=== PATIENT | male | born 1980 | race American Indian/Alaskan Native ===

== ENCOUNTER 2019-02-06 19:11 | Emergency (ER) | payer SELFPAY ==
--- NOTE | 2019-02-06 20:27 | XRay Report ---
CHEST 2 VIEWS INDICATION / CLINICAL INFORMATION: cough. COMPARISON: None available. FINDINGS: SUPPORT DEVICES: None. HEART / MEDIASTINUM: No significant abnormality. LUNGS / PLEURA: No significant pulmonary or pleural abnormality. No pneumothorax. ADDITIONAL FINDINGS: No significant additional findings. IMPRESSION: 1. No acute findings. Signer Name: João Carver MD Signed: 02/06/2019 8:22 PM Workstation Name: [id number]
--- NOTE | 2019-02-06 22:00 | Emergency Department Report ---
Minor Respiratory - HPI Chief Complaint: Upper Respiratory Infection Stated Complaint: DIZZY, BURNING SENSATION IN CHEST Time Seen by Provider: 02/06/19 21:58 Duration: 1WEEK Minor Respiratory: Yes Cough, Yes Fever (subjective), No Rhinorrhea, No Sore Throat, No Able to Tolerate Fluids, No Ear Pain, No Sick Contacts, No Hemoptysis, No Chest Pain, No Shortness of Breath Other History: 38-year-old -[place] male presents to the emergency room for coughing chest congestion chest burning with cough 1 week. Patient reports that he is having a productive cough of green sputum. Patient admits to a headache. Patient states he has taken Rissa-Hyrum and Coricidin without much relief. ED Review of Systems ROS: Stated complaint: DIZZY, BURNING SENSATION IN CHEST Other details as noted in HPI Comment: All other systems reviewed and negative ED Past Medical Hx - Past Medical History Previous Medical History?: No - Surgical History Past Surgical History?: No - Social History Smoking Status: Never Smoker Substance Use Type: Marijuana - Medications Home Medications: Home Medications Medication Instructions Recorded Confirmed Last Taken Type Albuterol Sulfate [Proventil Hfa] 6.7 gm IH QID PRN #1 hfa.aer.ad 02/06/19 Unknown Rx Azithromycin [Zithromax Z-MICHEL] 250 mg PO DAILY #6 tab 02/06/19 Unknown Rx predniSONE [Deltasone] 20 mg PO QDAY #5 tab 02/06/19 Unknown Rx Minor Respiratory Exam - Exam General: Vital signs noted. No distress. Alert and acting appropriately. HEENT: Yes Moist Mucous Membranes, No Pharyngeal Erythema, No Pharyngeal Exudates, No Rhinorrhea, No Conjuctival Injection, No Frontal Tenderness, No Maxillary Tenderness Ear: Neither TM Bulge, Neither TM Erythema, Neither EAC Pain, Neither EAC Discharge Neck: Yes Supple, No Adenopathy Lungs: Yes Wheezes, Yes Ronchi, No Good Air Exchange, No Stridor, No Cough, No Labored Respirations, No Retractions, No Use of Accessory Muscles, No Other Abnormal Lung Sounds Heart: Yes Regular, No Murmur Abdomen: Yes Normal Bowel Sounds, No Tenderness, No Peritoneal Signs Skin: No Rash, No Edema Neurologic: Alert and oriented, no deficits. Musculoskeletal: Unremarkable. ED Course Vital Signs 02/06/19 19:28 Temperature 98.8 F Pulse Rate 78 Respiratory 18 Rate Blood Pressure 126/85 O2 Sat by Pulse 99 Oximetry - Reevaluation(s) Reevaluation #1: 02/06/19 22:59 Reevaluation of patient after nebulizer treatment. Patient raucous has improved mild coarse breathing. ED Medical Decision Making - Radiology Data Radiology results: report reviewed Patient: PAUL MOLINA MR#: [id number] 2 : 1980 Acct:[id number] Age/Sex: 38 / M ADM Date: 02/06/19 Loc: ED Attending Dr: Ordering Physician: TERESA LINTON Date of Service: 02/06/19 Procedure(s): XR chest routine 2V Accession Number(s): [id number] cc: TERESA LINTON Fluoro Time In Minutes: CHEST 2 VIEWS INDICATION / CLINICAL INFORMATION: cough. COMPARISON: None available. FINDINGS: SUPPORT DEVICES: None. HEART / MEDIASTINUM: No significant abnormality. LUNGS / PLEURA: No significant pulmonary or pleural abnormality. No pneumothorax. ADDITIONAL FINDINGS: No significant additional findings. IMPRESSION: 1. No acute findings. Signer Name: João Carver MD Signed: 02/06/2019 8:22 PM Workstation Name: [id number] Transcribed By: [place] Dictated By: João Carver MD Electronically Authenticated By: João Carver MD Signed Date/Time: 02/06/192021 DD/ 20 TD/TT: - Medical Decision Making 38-year-old -[place] male presents to the emergency room for coughing chest congestion chest burning with cough 1 week. Patient reports that he is having a productive cough of green sputum. Patient admits to a headache. Patient states he has taken Rissa-Hyrum and Coricidin without much relief. Chest x-ray was negative. Chest exam patient has rhonchi and wheezing. Ordered albuterol Atrovent dexamethasone. Reevaluation of patient's he has improved with his rhonchus but has some coarse breath sounds. Patient will be discharged home with Z-Michel, albuterol inhaler, and prednisone. Patient is instructed to increase his fluid intake and to rest. Patient verbalized understanding Critical care attestation.: If time is entered above; I have spent that time in minutes in the direct care of this critically ill patient, excluding procedure time. ED Disposition Clinical Impression: Bronchitis Disposition: DC-01 TO HOME OR SELFCARE Is pt being admited?: No Does the pt Need Aspirin: No Condition: Stable Instructions: Acute Bronchitis (ED) Additional Instructions: Complete antibiotics as prescribed he's inhaler and complete prednisone as prescribed. Increase her fluid intake advance her diet as tolerated. Please allow yourself to rest. He can take [id number] Robitussin-DM. Prescriptions: predniSONE [Deltasone] 20 mg PO QDAY #5 tab Albuterol Sulfate [Proventil Hfa] 6.7 gm IH QID PRN #1 hfa.aer.ad PRN Reason: Cough Azithromycin [Zithromax Z-MICHEL] 250 mg PO DAILY #6 tab Forms: Work/School Release Form(ED)
[2019-02-06] MEDS ORDERED: DEXAMETHASONE 4 MG TAB PO ONE (22:08)
[2019-02-06] MEDS ORDERED: ALBUTEROL 2.5 MG/3 ML NEBU IH ONE (22:08)
[2019-02-06] MEDS ORDERED: IPRATROPIUM 0.02% NEBU 2.5 ML IH ONE (22:08)
[2019-02-06] MEDS ORDERED: AZITHROMYCIN 250 MG TAB PO ONE (22:09)
[2019-02-06 23:11] VITALS: BP 148/84
== END 2019-02-06 23:13 | disposition home or self-care (01) ==
LOC: ED 19:11
DX: J40 Bronchitis, not specified as acute or chronic (principal); F12.10 Cannabis abuse, uncomplicated; Z79.899 Other long term (current) drug therapy
CPT/HCPCS: 71046; 94640; 99283; J8540; 94644